=== PATIENT | male | born 1975 | race Caucasian/White ===

== ENCOUNTER 2019-03-08 14:07 | Emergency (ER) | payer MEDICAID ==
[~2019-03-08] VITALS: Ht 170.2 cm; Wt 61.2 kg
[2019-03-08 14:13] VITALS: BP 139/97
--- NOTE | 2019-03-08 16:05 | NUR ---
PT CALLED, NO RESPONSE.
--- NOTE | 2019-03-08 16:15 | NUR ---
PT CALLED. NO RESPONSE.
--- NOTE | 2019-03-08 16:25 | NUR ---
PT CALLED. NO RESPONSE. PT LEFT WITHOUT BEING SEEN AT 1605.
== END 2019-03-08 16:05 | disposition left against medical advice (07) ==
LOC: MED 14:07
DX: R68.2 Dry mouth, unspecified (principal); R13.10 Dysphagia, unspecified; Z53.21 Procedure and treatment not carried out due to patient leaving prior to being seen by health care provider